=== PATIENT | female | born 1970 | race Caucasian/White ===

== ENCOUNTER 2017-03-22 21:04 | Inpatient (IN) ==
[2017-03-22] MEDS ORDERED: MORPHINE 2 MG/1 ML SYRINGE IV PRN (22:34)
[2017-03-22] MEDS ORDERED: ACETAMINOPHEN 325 MG TABLET PO PRN (22:34)
[2017-03-22] MEDS ORDERED: MORPHINE 2 MG/1 ML SYRINGE IV STA (22:36)
[2017-03-22] MEDS: ONDANSETRON 4 MG/2 ML VIAL IV PRN (22:50)
[2017-03-23] MEDS: cefOXitin 2,000 MG in SYRINGE 1 EACH IV SCH ×5 (00:40→23:45)
[2017-03-23] MEDS: DEXTROSE 5% LACTATED RINGERS 1,000 ML IV SCH ×2 (00:44→19:40)
[2017-03-23] MEDS: ONDANSETRON 4 MG/2 ML VIAL IV PRN (05:17)
[2017-03-23 07:27] LABS: Basophils % 0.2 % (0.0-0.8); Eosinophils % 0.1 % (0.00-10.9); Hematocrit 37.2 VOL% (35.7-47.0); Hemoglobin 12.7 GM/DL (12.0-16.0); Immature Granulocytes % 0.5 %; Immature Granulocytes Absolute 0.07 #; Lymphocytes # 1.3 10*3/uL (1.4-4.0); Lymphocytes % 9.3 % (21.3-54.2); Mean Corpuscular HGB Conc 34.1 GM/DL (32-36); Mean Corpuscular Hemoglobin 31 PG (27-34); Mean Platelet Volume 8.9 FL (9.6-12.0); Monocytes # 1.4 10*3/uL (0.11-0.8); Neutrophils # 10.9 10*3/uL (1.4-7.4); Neutrophils % 79.9 % (38.7-73.9); Platelet Count 261 T/CUMM (130-400); Red Blood Count 4.09 MC/CUMM (3.8-5.5); White Blood Count 13.6 T/CUMM (4-12)
[2017-03-23 07:48] LABS: Albumin 3.4 G/DL (3.4-5.0); Bilirubin,Total 1.5 MG/DL (0.2-1.0); Osmolality,Calculated 283.3 MOS/KG (273-304); Potassium 3.8 MMOL/L (3.5-5.1); Total Protein 6.1 G/DL (6.4-8.3)
[2017-03-23] MEDS: PANTOPRAZOLE 40 MG TABLET PO SCH (07:59)
[2017-03-23] MEDS ORDERED: GLUCAGON 1 MG VIAL IM PRN (08:29)
[2017-03-23] MEDS ORDERED: DEXTROSE 50% 25 GM/50 ML VIAL IV PRN (08:29)
[2017-03-23] MEDS ORDERED: ceFAZolin 2,000 MG in PREMIX 1 EACH IV ONE (09:00)
[2017-03-23] MEDS ORDERED: LIDOCAINE 2%/EPI 20 ML VIAL ONE (09:16)
[2017-03-23] MEDS ORDERED: BUPIVACAINE 0.25% 50 ML VIAL ONE (09:16)
[2017-03-23] MEDS: LACTATED RINGERS 1,000 ML IV SCH ×2 (09:51→12:29)
[2017-03-23] MEDS ORDERED: ONDANSETRON 4 MG/2 ML VIAL IV PRN ×2 (11:52→12:26)
[2017-03-23] MEDS ORDERED: HYDROmorphone 2 MG/1 ML VIAL IV PRN ×2 (11:52→12:26)
[2017-03-23] MEDS ORDERED: PROPOFOL 200 MG/20 ML VIAL IV ONE (12:05)
[2017-03-23] MEDS ORDERED: GLYCOPYRROLATE 0.4 MG/2 ML VIAL ONE (12:06)
[2017-03-23] MEDS ORDERED: ONDANSETRON 4 MG/2 ML VIAL ONE (12:06)
[2017-03-23] MEDS ORDERED: fentaNYL 100 MCG/2 ML VIAL ONE (12:06)
[2017-03-23] MEDS ORDERED: ACETAMINOPHEN 1,000 MG/100 ML VIAL IV ONE (12:06)
[2017-03-23] MEDS ORDERED: NEOSTIGMINE 10 MG/10 ML VIAL ONE (12:06)
[2017-03-23] MEDS ORDERED: MIDAZOLAM 2 MG/2 ML VIAL ONE (12:06)
[2017-03-23] MEDS ORDERED: ROCURONIUM 100 MG/10 ML VIAL IV ONE (12:07)
[2017-03-23] MEDS: INSULIN REGULAR 100 UNIT/ML SUBCUT SCH ×3 (14:25→20:47)
[2017-03-23] MEDS: KETOROLAC 15 MG/1 ML VIAL IV SCH ×3 (14:26→23:44)
[2017-03-23 16:01] LABS: Hematocrit 35.4 VOL% (35.7-47.0); Hemoglobin 12.3 GM/DL (12.0-16.0)
[2017-03-23] MEDS: ceFAZolin 2,000 MG in PREMIX 1 EACH IV SCH (17:10)
[2017-03-23] MEDS: SODIUM CHLORIDE 0.9% 1,000 ML IV SCH ×2 (19:40→21:36)
[2017-03-24] MEDS: ceFAZolin 2,000 MG in PREMIX 1 EACH IV SCH (01:49)
[2017-03-24] MEDS: SODIUM CHLORIDE 0.9% 1,000 ML IV SCH ×3 (01:52→13:23)
[2017-03-24] MEDS: cefOXitin 2,000 MG in SYRINGE 1 EACH IV SCH ×3 (05:51→22:28)
[2017-03-24] MEDS: KETOROLAC 15 MG/1 ML VIAL IV SCH ×4 (05:51→23:33)
[2017-03-24 06:17] LABS: Basophils % 0.2 % (0.0-0.8); Eosinophils # 0.1 10*3/uL (0.0-0.87); Hematocrit 32.4 VOL% (35.7-47.0); Hemoglobin 10.9 GM/DL (12.0-16.0); Immature Granulocytes % 0.5 %; Immature Granulocytes Absolute 0.04 #; Lymphocytes # 2.2 10*3/uL (1.4-4.0); Lymphocytes % 24.3 % (21.3-54.2); Mean Corpuscular HGB Conc 33.6 GM/DL (32-36); Mean Corpuscular Hemoglobin 31 PG (27-34); Mean Corpuscular Volume 92.8 FL (87-102); Mean Platelet Volume 8.9 FL (9.6-12.0); Monocytes # 0.5 10*3/uL (0.11-0.8); Monocytes % 5.3 % (1.7-12.7); Neutrophils # 6.1 10*3/uL (1.4-7.4); Neutrophils % 68.7 % (38.7-73.9); Platelet Count 188 T/CUMM (130-400); Red Blood Count 3.49 MC/CUMM (3.8-5.5); Red Cell Distribution Width 12.2 % (9.3-17.3); White Blood Count 8.9 T/CUMM (4-12)
[2017-03-24 06:56] LABS: Albumin 2.6 G/DL (3.4-5.0); Bilirubin,Total 0.5 MG/DL (0.2-1.0); Calcium 7.2 MG/DL (8.5-10.1); Potassium 3.4 MMOL/L (3.5-5.1)
[2017-03-24] MEDS: INSULIN REGULAR 100 UNIT/ML SUBCUT SCH ×4 (08:05→21:10)
[2017-03-24] MEDS: PANTOPRAZOLE 40 MG TABLET PO SCH (08:58)
[2017-03-24] MEDS: ENOXAPARIN 40 MG/0.4 ML SYRINGE SUBCUT SCH (08:58)
[2017-03-25] MEDS: SODIUM CHLORIDE 0.9% 1,000 ML IV SCH (03:32)
[2017-03-25] MEDS: KETOROLAC 15 MG/1 ML VIAL IV SCH (06:33)
[2017-03-25] MEDS: cefOXitin 2,000 MG in SYRINGE 1 EACH IV SCH (06:33)
[2017-03-25 08:08] VITALS: BP 122/76
[2017-03-25] MEDS: INSULIN REGULAR 100 UNIT/ML SUBCUT SCH (08:17)
[2017-03-25] MEDS: PANTOPRAZOLE 40 MG TABLET PO SCH (09:19)
[2017-03-25] MEDS: ENOXAPARIN 40 MG/0.4 ML SYRINGE SUBCUT SCH (09:19)
== END 2017-03-25 10:50 | disposition home or self-care (01) | DRG 419 ==
LOC: N.ED 21:04 → N.EDINP 22:34 → N.3E 23:45
PROVIDERS: ADMIT Specialist; ATTEND Specialist
PROC: LAPCHOL (2017-03-23 09:51)